=== PATIENT | male | born 1965 | race African-American/Black ===

== ENCOUNTER 2022-01-29 17:39 | Emergency (ER) | payer OTHER ==
[2022-01-29 18:00] VITALS: BP 164/90; PULSE 62; RESP 20; TEMP 98.4; BMI 34.8
[2022-01-29 22:39] LABS: BASO % 0.5 % (0-2.0); HEMOGLOBIN 14.9 GM/dL (11.7-16.9); LYMPH % 45.2 % (8-40); MCH 28.3 pg (25.7-33.7); MCHC 33.8 g/dl (32.0-35.9); MEAN CELL VOLUME 83.8 fl (80-96); MEAN PLT VOLUME 8.8 fl (7.5-11.1); MONO % 11.8 % (3.8-10.2); NEUT % 41.5 % (42.8-82.8); PLATELET COUNT 195 10^3/uL (134-434); RBC 5.25 M/mm3 (4.00-5.60); RDW 12.5 % (11.9-15.9); WHITE BLOOD COUNT 6.2 K/mm3 (4.0-10.0)
[2022-01-29 23:06] LABS: CALCIUM 9.5 mg/dL (8.5-10.1)
[2022-01-29 23:07] LABS: ALBUMIN 4.3 g/dl (3.4-5.0); BLOOD UREA NITROGEN 13.9 mg/dL (7-18)
[2022-01-29 23:10] LABS: CREATININE 0.8 mg/dL (0.55-1.3)
[2022-01-29 23:12] LABS: BILIRUBIN,TOTAL 0.4 mg/dL (0.2-1)
== END 2022-01-30 00:34 | disposition home or self-care (01) ==
LOC: JER 17:39
DX: M79.10 Myalgia, unspecified site (principal)
CPT/HCPCS: 36415; 80053; 82550; 83605; 83874; 85025; 99283-25